=== PATIENT | female | born 1955 | race African-American/Black ===

== ENCOUNTER 2025-08-02 16:54 | Emergency (ER) | payer BC, MEDICAID ==
[~2025-08-02] VITALS: Ht 162.6 cm; Wt 75.0 kg
[~2025-08-02 16:54] MED LIST: LEVO-65 MT
[2025-08-02 17:24] VITALS: O2SAT 100
[2025-08-02 18:15] LABS: BASOPHILS % 0.4 % (0.0-2.0); EOSINOPHILS % 2.2 % (0.0-5.0); HEMATOCRIT. 38.2 % (36.0-48.0); HEMOGLOBIN. 12.4 g/dL (12.0-16.0); LYMPHOCYTES % 17.7 % (20.0-50.0); MEAN PLATELET VOLUME 9.2 fl (7.4-10.4); MONOCYTES % 14.6 % (2.0-8.0); NEUTROPHILS % 65.1 % (40.0-76.0); PLATELET 215 x1000/uL (130-400); RED BLOOD CELL COUNT 3.81 mill/uL (4.2-5.4); RED CELL DISTRIBUTION WIDTH 14.2 % (11.6-14.6)
[2025-08-02 18:29] LABS: CREATININE 1.1 mg/dL (0.6-1.0); UREA NITROGEN BLOOD 10 mg/dL (9-23)
[2025-08-02 18:52] VITALS: BP 124/67; PULSE 84; RESP 16; TEMP 36.9; O2SAT 97
== END 2025-08-02 18:54 | disposition home or self-care (01) ==
LOC: ER 16:54
DX: R51.9 Headache, unspecified (principal); R42 Dizziness and giddiness; I10 Essential (primary) hypertension; Z88.5 Allergy status to narcotic agent
CPT/HCPCS: 36415; 80048; 85025; 93005; 99284